=== PATIENT | female | born 1940 | race Caucasian/White ===

== ENCOUNTER 2018-09-19 11:08 | Inpatient (IN) | payer MEDICARE ==
[~2018-09-19] VITALS: Ht 152.4 cm; Wt 38.3 kg
[2018-09-19 11:08] VITALS: BP_SYST 97
[2018-09-19] MEDS ORDERED: NACL 0.9% 1,000 ML IV ONE (11:30)
[2018-09-19] MEDS ORDERED: DEXTROSE 50% JECT 50 ML DISP.SYRIN ONE (11:44)
[2018-09-19] MEDS ORDERED: DEXTROSE 50% JECT 50 ML DISP.SYRIN IVP ONE (11:45)
[2018-09-19 11:52] LABS: BASOPHILS # (AUTO) 0.1 K/uL (0.0-0.2); BASOPHILS % (AUTO) 0.3 % (0.0-2.0); EOSINOPHILS % (AUTO) 0.1 % (0.0-4.0); HEMATOCRIT 30.2 % (36-48); HEMOGLOBIN 9.3 g/dL (12.0-16.0); LYMPHOCYTES # (AUTO) 0.9 K/uL (1.0-5.5); LYMPHOCYTES % (AUTO) 3.9 % (20.5-51.5); MEAN CORPUSCULAR HEMOGLOBIN 29 pg (27-31); MEAN CORPUSCULAR HGB CONC 31 % (32-36); MEAN CORPUSCULAR VOLUME 94 fL (79.0-98.0); MONOCYTES # (AUTO) 2.1 K/uL (0.0-1.0); MONOCYTES % (AUTO) 9.4 % (1.7-9.3); NEUTROPHILS # (AUTO) 19.3 K/uL (1.8-7.7); NEUTROPHILS % (AUTO) 86.3 % (40.0-70.0); PLATELET COUNT (AUTO) 109 K/uL (130-430); RED BLOOD CELL COUNT(AUTO) 3.21 MIL/uL (4.2-6.2); RED CELL DISTRIBUTION WIDTH 20.7 % (9.0-15.0); WHITE BLOOD COUNT (AUTO) 22.4 K/uL (4.8-10.8)
[2018-09-19] MEDS ORDERED: ONDA4TAB5 PO (11:57)
[2018-09-19] MEDS ORDERED: LIP10 PO (11:57)
[2018-09-19] MEDS ORDERED: ACET325T53 PO (11:57)
[2018-09-19] MEDS ORDERED: PRAD75 PO (11:57)
[2018-09-19] MEDS ORDERED: GLUXR500 PO (11:57)
[2018-09-19] MEDS ORDERED: AZU500 PO (11:57)
[2018-09-19] MEDS ORDERED: MIRT15TA7 PO (11:57)
[2018-09-19] MEDS ORDERED: PEDI0.2517 PO (11:57)
[2018-09-19] MEDS ORDERED: FURO-150 PO (11:57)
[2018-09-19] MEDS ORDERED: IPRA3AMP9 INH (11:57)
[2018-09-19] MEDS ORDERED: ALBMDI INH (11:57)
[2018-09-19] MEDS ORDERED: LIDOINT TP (11:57)
[2018-09-19] MEDS ORDERED: SPIRIVA INH (11:57)
[2018-09-19] MEDS ORDERED: DIGO250T78 PO (11:57)
[2018-09-19] MEDS ORDERED: IMIQ1CRE10 TP (11:57)
[2018-09-19] MEDS ORDERED: BISO10TA13 PO (11:57)
[2018-09-19] MEDS ORDERED: HYDR200T80 PO (11:57)
[2018-09-19] MEDS ORDERED: DILT180C67 PO (11:57)
[2018-09-19 11:58] LABS: ANION GAP 26 (5-15); CALCIUM 9.2 mg/dL (8.4-11.0); CHLORIDE 91 mmol/L (98-107); CREATININE 1.58 mg/dL (0.55-1.30); SODIUM SERUM 132 mmol/L (136-145); UREA NITROGEN, BLOOD 47 mg/dL (8-21)
[2018-09-19] MEDS ORDERED: NOREPINEPHRINE BITARTRATE 4 MG in NS 246 ML IV ONE ×2 (12:00→13:30)
[2018-09-19] MEDS ORDERED: HYDROCORTISONE SOD SUCC 100 MG/2 ML VIAL IVP ONE (12:15)
[2018-09-19 12:20] LABS: INR 4.6 (0.8-1.2); PROTHROMBIN TIME 44.4 SECS (9.5-12.5)
[2018-09-19 12:25] LABS: ALANINE AMINOTRANSFERASE 27 U/L (12-78); ALBUMIN 2.1 g/dL (3.4-4.8); ASPARTATE AMINOTRANSFERASE 108 U/L (10-37); FREE T4 (FREE THYROXINE) 0.6 ng/dL (0.6-1.6); THYROID STIMULATING HORMONE 1.97 uIu/mL (0.34-4.82); TOTAL BILIRUBIN 1.8 mg/dL (0.0-1.0)
[2018-09-19 12:26] LABS: POTASSIUM 5.9 mmol/L (3.5-5.1)
[2018-09-19 12:27] LABS: GLUCOSE 7 mg/dL (70-99)
[2018-09-19] MEDS ORDERED: PIPERACILLIN/TAZO 3.375 GM in NS 50 ML IV ONE (12:30)
[2018-09-19] MEDS ORDERED: VANCOMYCIN HCL 1,000 MG in NS 250 ML IV ONE (12:30)
[2018-09-19] MEDS ORDERED: AZITHROMYCIN 500 MG in NS 250 ML IV ONE (12:30)
[2018-09-19] MEDS ORDERED: AZITHROMYCIN 500 MG/VIAL (ZITHROMAX) IV ONE (12:37)
[2018-09-19] MEDS ORDERED: PIPERACILLIN/TAZOBACTAM 3.375 GM/VIAL (ZOSYN) IV ONE (12:37)
[2018-09-19] MEDS ORDERED: VANCOMYCIN HCL 1000 MG/VIAL IV ONE (12:45)
[2018-09-19 13:28] LABS: BILIRUBIN,URINE 2+ (NEGATIVE); BLOOD, URINE NEGATIVE (NEGATIVE); COLOR,URINE YELLOW (YELLOW); GLUCOSE,URINE NEGATIVE (NEGATIVE); KETONES,URINE TRACE (NEGATIVE); LEUKOCYTE ESTERASE ,URINE NEGATIVE (NEGATIVE); NITRITE, URINE NEGATIVE (NEGATIVE); PROTEIN URINE 1+ (NEGATIVE)
[2018-09-19 13:29] LABS: CLARITY/URINE HAZY (CLEAR)
[2018-09-19 13:35] VITALS: BP_SYST 112
[2018-09-19 13:46] LABS: BACTERIA,URINE MODERATE /HPF (None Seen); RBC,URINE 0-3 /HPF (0-3); WBC,URINE 0-3 /HPF (0-3)
[2018-09-19 13:47] LABS: MUCUS,URINE 1+ /LPF (None Seen); URINE AMORPHOUS URATE 1+ /HPF (None Seen)
[2018-09-19 14:00] VITALS: BP_SYST 135; BP_SYST 143
[2018-09-19] MEDS: PIPERACILLIN/TAZOBACTAM 2.25 GM in NS 50 ML IV ONE ×2 (14:05→14:22)
[2018-09-19] MEDS: D5NS 1,000 ML IV ONE ×2 (14:10→14:23)
[2018-09-19 14:29] VITALS: BP_SYST 79
[2018-09-19] MEDS ORDERED: ONDANSETRON HCL 4 MG/2 ML VIAL IVP PRN (14:30)
[2018-09-19] MEDS ORDERED: MORPHINE 2 MG/ML INJ. SYRINGE IVP PRN (14:30)
== END 2018-09-19 14:51 | disposition expired | DRG 682 ==
LOC: SED 11:08 → SIC 13:14
PROVIDERS: ADMIT Internal Medicine; ATTEND Internal Medicine
DX: N17.0 Acute kidney failure with tubular necrosis (principal); J96.00 Acute respiratory failure, unspecified whether with hypoxia or hypercapnia; G93.41 Metabolic encephalopathy; E43 Unspecified severe protein-calorie malnutrition; J44.1 Chronic obstructive pulmonary disease with (acute) exacerbation; I38 Endocarditis, valve unspecified; J90 Pleural effusion, not elsewhere classified; Z68.1 Body mass index [BMI] 19.9 or less, adult; E86.0 Dehydration; E78.5 Hyperlipidemia, unspecified; E87.5 Hyperkalemia; D63.8 Anemia in other chronic diseases classified elsewhere; I48.91 Unspecified atrial fibrillation; E16.2 Hypoglycemia, unspecified; Z79.84 Long term (current) use of oral hypoglycemic drugs; Z79.899 Other long term (current) drug therapy; Z88.8 Allergy status to other drugs, medicaments and biological substances; Z87.891 Personal history of nicotine dependence
CPT/HCPCS: 36415; 71045; 80053; 81000-TC; 82962; 83605; 84439; 84443-TC; 84484; 85025; 85610-TC; 85730-TC; 87040-TC; 87081; 87086; 93005; 96361; 96374; 96375; 99291; J0456; J1720; J2270; J2405; J2543; J3370; J7042; J7050